=== PATIENT | male | born 1970 | race Caucasian/White ===

== ENCOUNTER → 2018-12-09 | Day surgery (SDC) | payer BC ==
[~2018-12-09] MED LIST: CEFAZOLIN SOD 1 GM/NS 50ML 50 ML IV ONE; DEXAMETHASONE SOD PHOS INJ 4 MG/ML VIAL ONE; FENTANYL CITRATE/PF 100MCG/2 ML INJ ONE; LIDOCAINE HCL 2% LOCAL INJ 5 ML SDV VIAL INJ ONE; MIDAZOLAM HCL 2 MG/2 ML VIAL ONE; ONDANSETRON HCL INJ 2MG/ML 2ML 2 MG/ML VIAL ONE; PROPOFOL IV EMULSION 10 MG/ML 20 ML VIAL ONE; SEVOFLURANE INHAL SOLN 250 ML PEN BTL ONE; VYVANSE70 MG PO
[2018-12-09 08:30] VITALS: BP 123/84
--- NOTE | 2018-12-09 14:18 | Operative Report ---
DATE OF PROCEDURE: 12/09/2018 SURGEON: Timothy Monroe MD DEEP FAT FRY COOK: Bishop Felder, certified PA. PREOPERATIVE DIAGNOSIS: Left carpal tunnel syndrome. POSTOPERATIVE DIAGNOSIS: Left carpal tunnel syndrome. PROCEDURE: Left endoscopic carpal tunnel release. INDICATIONS: The patient is a 48-year-old gentleman, who has clinic signs and symptoms consistent with left carpal tunnel syndrome. He has failed conservative management and would like to proceed with definitive intervention. The risks and benefits of carpal tunnel release have been explained. He states he understands and wishes to proceed. PROCEDURE IN DETAIL: The patient was brought to the operating room and placed under general anesthetic. His left upper extremity was prepped and draped in a sterile manner. A preoperative time-out was performed. The extremity was exsanguinated and a proximal tourniquet was inflated to 250 mmHg. A small incision was made over the flexion crease of the left wrist. The flexor retinaculum was elevated and incised. An elevator was used to tease the tenosynovium off the undersurface of the transverse carpal ligament. Dilators were placed and the hook of the hamate was palpated. The [employer] endoscope was then placed into the carpal tunnel. The undersurface of the transverse carpal ligament was cleanly visualized without evidence of soft tissue interposition. The knife was deployed and the ligament was cut from distal to proximal. A full-thickness cut was ensured. The proximal retinaculum was incised under direct visualization. The incision was closed with 2 nylon stitches. A sterile bandage was applied. The patient was extubated and transported to the recovery room in stable condition. There was no blood loss and all needle and sponge counts were correct. Timothy Monroe MD DR/JOSE JUAN /[id number]
== END | disposition home or self-care (01) ==
LOC: OR 05:16
PROVIDERS: ATTEND Specialist
DX: G56.02 Carpal tunnel syndrome, left upper limb (principal); F98.8 Other specified behavioral and emotional disorders with onset usually occurring in childhood and adolescence; Z01.810 Encounter for preprocedural cardiovascular examination; Z79.82 Long term (current) use of aspirin; Z68.37 Body mass index [BMI] 37.0-37.9, adult
CPT/HCPCS: 29848; 93005; J0690; J1100; J2001; J2250; J2405; J2704; J3010

== ENCOUNTER 2019-07-19 12:13 | Emergency (ER) | payer BC ==
[~2019-07-19 12:13] MED LIST changes: -CEFAZOLIN SOD 1 GM/NS 50ML 50 ML IV ONE; -DEXAMETHASONE SOD PHOS INJ 4 MG/ML VIAL ONE; -FENTANYL CITRATE/PF 100MCG/2 ML INJ ONE; -LIDOCAINE HCL 2% LOCAL INJ 5 ML SDV VIAL INJ ONE; -MIDAZOLAM HCL 2 MG/2 ML VIAL ONE; -ONDANSETRON HCL INJ 2MG/ML 2ML 2 MG/ML VIAL ONE; -PROPOFOL IV EMULSION 10 MG/ML 20 ML VIAL ONE; -SEVOFLURANE INHAL SOLN 250 ML PEN BTL ONE
--- NOTE | 2019-07-19 12:23 | NUR ---
LEFT FOOT WITH POSITIVE PULSE, ABLE TO MOVE TOES. DENIES ANY NUMBNESS OR TINGLING. CAP REFIL <2 SEC. INCREASED REDNESS TO EXTREMITY. PATIENT STATES WHEN INCIDENT OCCURED HE HAS NOT BEEN RESTING, ELEVATING OR USING ICE. HE HAS BEEN WORKING THE LAST 4 DAYS AND WEARS STEEL TOE BOOTS.
--- NOTE | 2019-07-19 12:55 | Diagnostic Imaging Report ---
ANKLE 3+ VIEWS LEFT - 3 views HISTORY: Pain COMPARISON: None available. FINDINGS: Bones: No acute displaced fracture. Osseous alignment is within normal limits. Small dorsal calcaneal enthesophyte. Joints: No malalignment. Soft tissues: The soft tissues appear unremarkable. IMPRESSION: No acute radiographic abnormality. Signed by: Dr. Hever Brown MD on 07/19/2019 12:52 PM
--- NOTE | 2019-07-19 12:58 | Diagnostic Imaging Report ---
FOOT LEFT COMPLETE - 3 views HISTORY: Pain COMPARISON: None available. FINDINGS: Bones: No acute displaced fracture. Osseous alignment is within normal limits. Joints: The joint spaces are well-maintained. Soft tissues: The soft tissues appear unremarkable. IMPRESSION: No acute radiographic abnormality. Signed by: Dr. Hever Brown MD on 07/19/2019 12:54 PM
--- NOTE | 2019-07-19 13:00 | NUR ---
LEFT ORTHO SHOE PLACED ON PATIENT
== END 2019-07-19 14:17 | disposition home or self-care (01) ==
LOC: ER 12:13
DX: S96.912A Strain of unspecified muscle and tendon at ankle and foot level, left foot, initial encounter (principal); X50.0XXA Overexertion from strenuous movement or load, initial encounter; Y92.008 Other place in unspecified non-institutional (private) residence as the place of occurrence of the external cause; F90.9 Attention-deficit hyperactivity disorder, unspecified type
CPT/HCPCS: 99284